=== PATIENT | male | born 1955 | race Caucasian/White ===

== ENCOUNTER → 2017-02-27 | Outpatient (CLI) | payer BC ==
[~2017-02-27] MED LIST: ACTOS PO; ANTARA PO; ASPIRIN PO; ASPIRIN81 M1; ATENOLOL PO; CRESTOR PO; DOXYCYCLINE HY100 M1; FISH OIL 1,0001 CAP PO; GLUCOPHAGE XR500 MG PO; HYDROCODON-ACE1 EAC7; JANUVIA PO; LEVEMIR SUBQ; LIPITOR PO; LOTREL PO; LOVANZA; LOVAZA; METFORMIN PO; NIACIN PO; NIASPAN PO; NOVOLOG100 U/ML SUBQ; PANTOPRAZOLE SO40 MG; PROTONIX PO; STARLIX PO; TRILIPIX PO; TRILIPIX135 MG; ZETIA PO; [UNRECOGNIZED DRUG - OTHER]; [UNRECOGNIZED DRUG - OTHER] PO
[2017-02-27 08:53] LABS: HEMATOCRIT 47.1 % (38.0-50.0); HEMOGLOBIN 15.5 gm/dL (13.0-16.0); MEAN CELL VOLUME 81.9 FL (83-96); MEAN PLATELET VOLUME 7.6 FL (6.5-11.5); RED BLOOD COUNT 5.76 X10e (3.90-5.60); RED CELL DISTRIBUTION WIDTH 15.7 % (11.0-15.5)
[2017-02-27 09:50] LABS: BUN/CREATININE RATIO 22.85; CALCIUM SERUM 9.4 mg/dL (8.4-10.2); CREATININE SERUM 0.7 mg/dL (0.6-1.4); GLOM FILT RATE Estimated 103.3 mL/min (>60); POTASSIUM 4.2 mmol/L (3.5-5.1)
[2017-02-27 09:51] LABS: TESTOSTERONE TOTAL 181.95 ng/dL (17-781)
== END | disposition home or self-care (01) ==
LOC: CLAB 08:23
PROVIDERS: Internal Medicine Endocrinology, Diabetes & Metabolism
DX: E29.1 Testicular hypofunction (principal); E11.9 Type 2 diabetes mellitus without complications; Z79.899 Other long term (current) drug therapy
CPT/HCPCS: 36415; 80048; 83036; 84403; 85027

== ENCOUNTER → 2017-05-29 | Outpatient (CLI) | payer BC ==
[2017-05-29 08:05] LABS: ALBUMIN SERUM 3.9 g/dL (3.5-5.0); ALKALINE PHOSPHATASE 34 U/L (32-92); ALT (SGPT) 51 U/L (10-40); AST (SGOT) 35 U/L (10-42); BILIRUBIN,TOTAL 0.6 mg/dL (0.2-2.0); BLOOD UREA NITROGEN 28 mg/dL (9-23); CALCIUM SERUM 9.3 mg/dL (8.4-10.2); CARBON DIOXIDE 24 mmol/L (22-31); CHLORIDE 103 mmol/L (100-111); CHOLESTEROL 242 mg/dL (0-200); CREATININE SERUM 0.8 mg/dL (0.6-1.4); GLOM FILT RATE Estimated 97.8 mL/min (>60); GLUCOSE FASTING 176 mg/dL (70-110); HDL CHOLESTEROL 27 mg/dL (29-75); POTASSIUM 4.2 mmol/L (3.5-5.1); PROTEIN TOTAL SERUM 6.7 g/dL (6.0-8.3); SODIUM 135 mmol/L (135-145)
[2017-05-29 08:16] LABS: TRIGLYCERIDES 1056 mg/dL (10-160)
== END | disposition home or self-care (01) ==
LOC: CLAB 06:14
PROVIDERS: Internal Medicine Endocrinology, Diabetes & Metabolism
DX: E11.9 Type 2 diabetes mellitus without complications (principal); E78.2 Mixed hyperlipidemia
CPT/HCPCS: 36415; 80053; 80061; 83036